=== PATIENT | male | born 1975 | race Caucasian/White ===

== ENCOUNTER 2016-04-22 13:43 | Emergency (ER) | payer BC, OTHER ==
[2016-04-22] MEDS ORDERED: ASPIRIN 81 MG TABLET, CHEWABLE PO ONE (14:24)
--- NOTE | 2016-04-22 14:25 | ER Document Report ---
ED Medical Screen (RME) - General Stated Complaint: CHEST PAIN Mode of Arrival: Ambulatory Information source: Patient Notes: Pt reports midsternal chest pain off and on for the past year. Patient complains of increased pain today but has not taken any of his usual medications that treat his reflux. Patient did take one of his Xanax medications. She denies any cough or cold symptoms, patient denies nausea or vomiting. Hx: GERD, anxiety TRAVEL OUTSIDE OF THE [place] IN LAST 30 DAYS: No - Related Data Allergies/Adverse Reactions: No Known Allergies Allergy (Verified 04/22/16 14:21) Past Medical History - Past Medical History Cardiac Medical History: Denies: Hx Coronary Artery Disease, Hx Heart Attack, Hx Hypertension Pulmonary Medical History: Denies: Hx Asthma, Hx Bronchitis, Hx COPD, Hx Pneumonia Neurological Medical History: Denies: Hx Cerebrovascular Accident, Hx Seizures GI Medical History: Reports: Hx Gastroesophageal Reflux Disease Musculoskeltal Medical History: Denies Hx Arthritis Psychiatric Medical History: Reports: Hx Anxiety - presumed as cause of symptoms since last december - Immunizations Hx Diphtheria, Pertussis, Tetanus Vaccination: Yes Physical Exam - Vital signs Vitals: Temp Pulse Resp BP Pulse Ox 98.1 F 100 16 121/99 H 96 04/22/16 14:15 04/22/16 14:15 04/22/16 14:15 04/22/16 14:15 04/22/16 14:15 - Cardiovascular Rhythm: Regular Heart sounds: S1 appreciated, S2 appreciated Murmur: No Course - Vital Signs Vital signs: Temp Pulse Resp BP Pulse Ox 98.1 F 100 16 121/99 H 96 04/22/16 14:15 04/22/16 14:15 04/22/16 14:15 04/22/16 14:15 04/22/16 14:15
[2016-04-22 14:53] LABS: ABSOLUTE BASOPHILS # (AUTO) 0.1 10^3/uL (0.0-0.2); ABSOLUTE LYMPHOCYTES (AUTO) 1.8 10^3/uL (0.5-4.7); ABSOLUTE MONOCYTES (AUTO) 0.6 10^3/uL (0.1-1.4); ABSOLUTE NEUT (AUTO) 6.6 10^3/uL (1.7-8.2); BASOPHILS % (AUTO) 0.6 % (0-2); EOSINOPHILS % (AUTO) 0.5 % (0-6); HEMATOCRIT 46.1 % (37.9-51.0); HEMOGLOBIN 15.4 g/dL (13.5-17.0); HGB HCT DIFFERENCE 0.1; LYMPHOCYTES % (AUTO) 19.9 % (13-45); MEAN CORPUSCULAR HEMOGLOBIN 30.2 pg (27.0-33.4); MEAN CORPUSCULAR HGB CONC 33.3 g/dL (32.0-36.0); MEAN CORPUSCULAR VOLUME 91 fl (80-97); MONOCYTES % (AUTO) 6.4 % (3-13); RED BLOOD COUNT 5.09 10^6/uL (4.35-5.55); RED CELL DISTRIBUTION WIDTH 13.8 % (11.5-14.0); SEGMENTED NEUTROPHILS % (AUTO) 72.6 % (42-78); WHITE BLOOD COUNT 9.1 10^3/uL (4.0-10.5)
[2016-04-22 15:12] LABS: ALANINE AMINOTRANSFERASE 19 U/L (21-72); ALBUMIN 4.4 g/dL (3.5-5.0); ALKALINE PHOSPHATASE 78 U/L (38-126); ANION GAP 12 (5-19); ASPARTATE AMINO TRANSFERASE 18 U/L (17-59); BILIRUBIN,TOTAL 0.4 mg/dL (0.2-1.3); BLOOD UREA NITROGEN 13 mg/dL (7-20); CARBON DIOXIDE 28 mmol/L (22-30); CHLORIDE 102 mmol/L (98-107); CREATINE KINASE 96 U/L (55-170); GLUCOSE 119 mg/dL (75-110); LIPASE 94.5 U/L (23-300); POTASSIUM 4.1 mmol/L (3.6-5.0); SODIUM 142.1 mmol/L (137-145); TOTAL PROTEIN 7.5 g/dL (6.3-8.2)
[2016-04-22 15:24] LABS: CREATINE KINASE MB 0.52 ng/mL (<4.55)
[2016-04-22 15:28] LABS: TROPONIN I < 0.012 ng/mL
--- NOTE | 2016-04-22 15:39 | ER Document Report ---
ED Cardiac - General Chief Complaint: Chest Pain Stated Complaint: CHEST PAIN Mode of Arrival: Ambulatory Information source: Patient Notes: Patient complains of chest pain off and on for the past 2 years. Patient does report a previous history of GERD as well as anxiety does report increased stress at home recently. Patient denies any cough or cold symptoms, nausea, vomiting, or diarrhea. Patient states that his pain is worse when touching his chest in certain positions relieve his pain. Patient denies any recent travel or immobilization. TRAVEL OUTSIDE OF THE [place] IN LAST 30 DAYS: No - HPI Patient complains to provider of: Chest pain. denies: Shortness of breath Chest pain location: Substernal Quality of pain: Achy Pain level currently: 3 Cardiac risk factors: denies: Diabetes, Hypertension, Smoker, Hx CO Positive cardiac history: No Associated symptoms: Anxiety. denies: Diaphoresis, Hypotension, Neck pain, Palpitations, Shortness of breath Exacerbated by: Other - Positional Similar symptoms previously: Yes Recently seen / treated by doctor: Yes - saw therapist earlier today - Related Data Allergies/Adverse Reactions: No Known Allergies Allergy (Verified 04/22/16 14:21) Past Medical History - General Information source: Patient - Social History Smoking Status: Unknown if Ever Smoked Chew tobacco use (# tins/day): No Frequency of alcohol use: None Drug Abuse: None Occupation: call center Lives with: Spouse/Significant other Family History: Reviewed & Not Pertinent - Patient only knows his mother his family's history. Knows nothing of his father. Patient has suicidal ideation: No Patient has homicidal ideation: No - Past Medical History Cardiac Medical History: Denies: Hx Coronary Artery Disease, Hx Heart Attack, Hx Hypertension Pulmonary Medical History: Denies: Hx Asthma, Hx Bronchitis, Hx COPD, Hx Pneumonia Neurological Medical History: Denies: Hx Cerebrovascular Accident, Hx Seizures Renal/ Medical History: Denies: Hx Peritoneal Dialysis GI Medical History: Reports: Hx Gastroesophageal Reflux Disease Musculoskeltal Medical History: Denies Hx Arthritis Psychiatric Medical History: Reports: Hx Anxiety - presumed as cause of symptoms since last december Past Surgical History: Reports: Hx Orthopedic Surgery - Immunizations Hx Diphtheria, Pertussis, Tetanus Vaccination: Yes Review of Systems - Review of Systems Constitutional: No symptoms reported. denies: Fever, Recent illness EENT: No symptoms reported Cardiovascular: Chest pain. denies: Syncope, Dizziness Respiratory: No symptoms reported. denies: Cough, Short of breath Gastrointestinal: No symptoms reported. denies: Abdominal pain, Nausea, Vomiting Genitourinary: No symptoms reported Male Genitourinary: No symptoms reported Musculoskeletal: No symptoms reported. denies: Back pain Skin: No symptoms reported Hematologic/Lymphatic: No symptoms reported Neurological/Psychological: Anxiety Physical Exam - Vital signs Vitals: Temp Pulse Resp BP Pulse Ox 98.1 F 100 16 121/99 H 96 04/22/16 14:15 04/22/16 14:15 04/22/16 14:15 04/22/16 14:15 04/22/16 14:15 - General General appearance: Appears well, Alert In distress: None Notes: PHYSICAL EXAMINATION: GENERAL: Well-appearing and in no acute distress. HEAD: Atraumatic, normocephalic. EYES: sclera anicteric, conjunctiva are normal. ENT: nares patent. Moist mucous membranes. NECK: Normal range of motion, supple without lymphadenopathy LUNGS: CTAB and equal. No wheezes rales or rhonchi. Chest mildly tender with palpation. HEART: Regular rate and rhythm without murmurs ABDOMEN: Soft, nontender, normal bowel sounds, no guarding. EXTREMITIES: Normal range of motion, no pitting edema. No cyanosis. BACK: No CVA tenderness NEUROLOGICAL: Cranial nerves grossly intact. Normal speech. Normal gait. PSYCH: Normal mood, normal affect. SKIN: Warm, Dry, normal turgor, no rashes or lesions noted Course - Re-evaluation Re-evalutation: 04/22/16 17:37 Patient sleeping, arouses easily to voice. Vital signs stable. Patient denies any significant chest pain at this time. The patient has atypical chest pain as the patient's chest pain is not suggestive of pulmonary embolus, cardiac ischemia, aortic dissection, or other serious etiology. Given the extremely low risk of these diagnoses for the test in evaluation for these possibilities does not appear to be indicated at this time. Patient has been instructed to return if the symptoms worsen or change in any way. Heart score 0. Consulted with Dr. Good, EKG reviewed, discussed patient's diagnostic study results, agrees with plan of care. - Vital Signs Vital signs: Temp Pulse Resp BP Pulse Ox 98.1 F 100 25 H 120/95 H 97 04/22/16 14:15 04/22/16 14:15 04/22/16 17:37 04/22/16 17:37 04/22/16 17:37 - Laboratory Result Diagrams: 04/22/16 14:35 04/22/16 14:35 Laboratory results interpreted by me: 04/22/16 14:35 Glucose 119 H ALT 19 L - Diagnostic Test Radiology reviewed: Reports reviewed - EKG Interpretation by Me EKG shows normal: Sinus rhythm Rate: Normal Rhythm: NSR Discharge - Discharge Clinical Impression: Hx of anxiety disorder, Hx of gastroesophageal reflux (GERD) Chest pain Qualifiers: Chest pain type: unspecified Qualified Code(s): R07.9 - Chest pain, unspecified Condition: Stable Disposition: HOME, SELF-CARE Instructions: Chest Pain of Unclear Cause ([facility]), Reflux Disease (GERD) ([facility]), Anxiety ([facility]) Additional Instructions: Return immediately for any new or worsening symptoms Followup with your primary care provider, call tomorrow to make a followup appointment Follow up with a manufacturing industrial engineer for further evaluation Prescriptions: Naproxen [Naprosyn 250 Nmg Tablet] 1 tab PO BID #14 tablet Forms: Return to Work Referrals: SALUD VELASCO MD [Primary Care Provider] - Follow up tomorrow BELKIS JOHNSON MD [ACTIVE STAFF] - Follow up in 3-5 days
[2016-04-22 16:04] LABS: APPEARANCE,URINE CLEAR; BILIRUBIN,URINE NEGATIVE (NEGATIVE); GLUCOSE, URINE NEGATIVE (NEGATIVE); KETONES,URINE NEGATIVE (NEGATIVE); LEUKOCYTE ESTERASE,URINE NEGATIVE (NEGATIVE); NITRITE,URINE NEGATIVE (NEGATIVE); PROTEIN,URINE NEGATIVE (NEGATIVE); URINE SPECIFIC GRAVITY 1.002; UROBILINOGEN,URINE NEGATIVE mg/dL (<2.0)
[2016-04-22 16:15] LABS: URINE BARBITURATES SCREEN NEGATIVE; URINE METHADONE SCREEN NEGATIVE; URINE PHENCYCLIDINE SCREEN NEGATIVE
[2016-04-22 17:53] VITALS: BP 120/95
--- NOTE | 2016-04-22 18:06 | EKG REPORT ---
SEVERITY:- NORMAL ECG - SINUS RHYTHM : Confirmed by: Rigo Lopez MD 22-Apr-2016 18:05:50
== END 2016-04-22 17:55 | disposition home or self-care (01) ==
LOC: ER 13:43
DX: R07.89 Other chest pain (principal); F41.9 Anxiety disorder, unspecified; Z87.19 Personal history of other diseases of the digestive system
CPT/HCPCS: 36415; 71020; 80053; 80307; 81001; 82550; 82553; 83690; 84484; 85025; 85379; 93005; 93010; 99285